=== PATIENT | female | born 1955 | race American Indian/Alaskan Native ===

== ENCOUNTER 2018-10-30 12:20 | Day surgery (SDC) | payer BC ==
[2018-10-30 13:20] LABS: BASO # 0.02 K/mm3 (0.0-2.0); BASO % 0.4 % (0.0-3.0); EOS % 0.4 % (1.5-5.0); GRAN # 3.57 (1.4-6.5); GRAN % 67.5 % (50.0-68.0); HEMOGLOBIN 12.1 g/dL (12.0-16.0); LYMPH # 1.3 (1.2-3.4); LYMPH % 24.1 % (22.0-35.0); MEAN CELL VOLUME 81.7 fl (80.0-105.0); MEAN CORPUSCULAR HEMOGLOBIN 26.7 pg (25.0-35.0); MEAN CORPUSCULAR HGB CONC 32.6 g/dl (31.0-37.0); MEAN PLATELET VOLUME 11.3 fl (7.0-11.0); MONO # 0.4 (0.1-0.6); MONO % 7.6 % (1.0-6.0); RBC 4.54 10^6/uL (3.5-6.1); RED CELL DISTRIBUTION WIDTH 14.1 % (11.5-14.5); WHITE BLOOD COUNT 5.3 10^3/uL (4.5-11.0)
[2018-10-30 13:32] LABS: INR 0.97; PARTIAL THROMBOPLASTIN TIME 29.3 Seconds (25.1-36.5); PROTHROMBIN TIME 11.2 SECONDS (9.4-12.5)
[2018-10-30 13:33] LABS: ALB/GLOB RATIO 1.4 (1.1-1.8); ALBUMIN 4.7 g/dL (3.0-4.8); ALT/SGPT 31 U/L (7-56); AMYLASE 79 U/L (35-125); AST/SGOT 38 U/L (14-36); BLOOD UREA NITROGEN 8 mg/dL (7-21); CALCIUM 9.8 mg/dL (8.4-10.5); GAMMA GLUTAMYL TRANSPEPTIDASE 28 U/L (8-78); GFR NON-AFRICAN AMERICAN > 60; LIPASE 32 U/L (23-300)
[2018-10-30] MEDS ORDERED: Midazolam 2 MG/2 ML VIAL ONE (14:21)
[2018-10-30] MEDS ORDERED: Propofol 10 mg/ml Inj (20 ML) ONE ×5 (14:22→15:46)
[2018-10-30] MEDS ORDERED: Sodium Chloride 0.9% 1,000 ML IV SCH (16:15)
[2018-10-30 16:21] VITALS: RESP 16
[2018-10-30 17:11] VITALS: BP 123/67; PULSE 78; TEMP 98.2; O2SAT 100
== END 2018-10-30 17:34 | disposition home or self-care (01) ==
LOC: ENDO 12:20
PROVIDERS: ATTEND Internal Medicine Gastroenterology
DX: K21.9 Gastro-esophageal reflux disease without esophagitis (principal); K29.50 Unspecified chronic gastritis without bleeding; N28.89 Other specified disorders of kidney and ureter; E11.9 Type 2 diabetes mellitus without complications
CPT/HCPCS: 36415; 43239; 43259; 80053; 82150; 82977; 83690; 85025; 85610; 85730; 88305; 88342; J2250; J2704; J3010; J7030 ×2; J7040